=== PATIENT | female | born 1965 | race Caucasian/White ===

== ENCOUNTER → 2019-07-08 07:32 | Outpatient (CLI) | payer BC, SELFPAY ==
[2019-07-08 10:28] LABS: Anion Gap 7 (5-15); BUN 17 mg/dL (7-18); BUN/Creat Ratio 24.3 RATIO (10-20); Calcium,Total 8.7 mg/dL (8.5-10.1); Chloride 108 mmol/L (98-107); Cholesterol 211 mg/dL (200); EST Glomerular Filtration Rate 93 mL/min (>60); Est Glom Filt Rate - Afr Amer 113 mL/min (>60); Glucose 95 mg/dL (74-106); High Density Lipoprotein 51 mg/dL; Potassium 3.9 mmol/L (3.5-5.1); Sodium Level 139 mmol/L (136-145); Thyroid Stim Hormone (TSH) 1.65 uIU/mL (0.358-3.74); Triglycerides 134 mg/dL; Very Low Density Lipoprotein 27 mg/dL (5-40)
== END ==
PROVIDERS: Family Provider Family Medicine; PCP Family Medicine; Referring Provider Family Medicine; Visit Provider Family Medicine
DX: F32.9 Major depressive disorder, single episode, unspecified (principal); Z13.1 Encounter for screening for diabetes mellitus; Z13.220 Encounter for screening for lipoid disorders
CPT/HCPCS: 36415; 80048; 80061; 84443

== ENCOUNTER → 2023-05-07 | Outpatient (CLI) | payer BC, SELFPAY ==
[2023-05-07 15:33] LABS: Absolute Lymphocyte Count 1.57 X10^3/uL (0.83-4.51); Absolute Neutrophil Count 3.7 X10^3/uL (2.0-7.7); Basophil# 0.06 X10^3/uL; Eosinophil# 0.07 X10^3/uL; Eosinophils% 1.2 % (0-5); Hematocrit 43.8 % (37-47); Hemoglobin 14.4 g/dL (12.0-15.0); Lymphocyte # 1.57 X10^3/ul (0.83-4.51); Mean Corp Hgb Conc 32.9 g/dL (32-36); Mean Corpuscular Hgb 29.4 pg (27.0-32.0); Mean Corpuscular Volume 89.6 fL (81-99); Mean Platelet Vol. 10.4 fl (6.2-12.0); Monocyte# 0.38 X10^3/uL; Monocyte% 6.5 % (0-10); NRBC Flagged by Analyzer 0 % (0-5); Neutrophil # 3.73 X10^3/uL (2.7-7.7); Neutrophil % 64.1 % (47-70); Platelet Count 329 K/mm3 (150-450); RBC Distribution Width CV 12.8 % (11.6-14.6); RBC Distribution Width SD 41.8 fl (35.1-43.9); Red Blood Count 4.89 M/mm3 (4.2-5.4); White Blood Count 5.8 K/mm3 (4.4-11.0)
[2023-05-07 16:03] LABS: Vitamin B12 359 pg/mL (211-911); Vitamin D,25 Hydroxy 31.4 ng/mL
[2023-05-07 16:07] LABS: Hemoglobin A1c 5.7 % (3.8-5.6)
[2023-05-07 16:13] LABS: AST(SGOT) 15 U/L (15-37); Alanine Aminotransfer ALT/SGPT 34 U/L (13-56); Alkaline Phosphatase 117 U/L (45-117); Anion Gap 7 (5-15); BUN 20 mg/dL (7-18); BUN/Creat Ratio 26.7 RATIO (10-20); Chloride 106 mmol/L (98-107); Creatinine, Serum 0.75 mg/dL (0.55-1.02); EST Glomerular Filtration Rate 85 mL/min (>60); Est Glom Filt Rate - Afr Amer 103 mL/min (>60); Ferritin 50 ng/mL (8-252); Globulin 3.9 g/dL (2.2-4.2); Glucose 94 mg/dL (74-106); Potassium 3.9 mmol/L (3.5-5.1); Protein, Total 7.9 g/dL (6.4-8.2); Sodium Level 138 mmol/L (136-145); Thyroid Stim Hormone (TSH) 1.56 uIU/mL (0.358-3.74)
== END | disposition home or self-care (01) ==
PROVIDERS: PCP Family Medicine; Referring Provider Family Medicine; Visit Provider Family Medicine
DX: Z00.00 Encounter for general adult medical examination without abnormal findings (principal)
CPT/HCPCS: 36415; 80053; 82306; 82607; 82728; 83036; 84443; 85025

== ENCOUNTER 2023-08-08 09:30 | Outpatient (RCR) | payer BC, SELFPAY ==
--- NOTE | 2023-06-25 09:54 | HP.PTEVAL ---
Patient's Visit Information Visit Information Visit Information: WESLEY JOHNSON is a 57 year old F referred to Physical Therapy by NEHA ESPINOZA with a diagnosis of R Achilles tendonitis/Equinus contracture of R ankle. Date of Evaluation: 06/25/23 Physical Therapist: Dejah Coffey MPT Visit Plan Frequency: 2x /Week Duration: 6 Weeks Plan: 2X/ week for 6 weeks for R ankle AROM, PROM, foam/stick rolling, stretching of the Achilles, joint mobs to increase DF, strengthening of R ankle, gait training, STmobilization, US with HEP HEP: towel gastroc stretch, seated heel and toe raises Subjective Subjective: Pt was dx with R Achilles tendonitis due to burning sensation and difficulty walking. Dr suggested that she does PT couple times a week for 6 weeks. She does not know how she hurt it and it gradually came on. She has days that it is pretty good but her bad days are bad. She can not know what increases the inflammation. She has no back pain. She does not wear high heeled shoes. Stairs: she is able to go up and down the stairs recip with a railing. She has a fear of falling. Her pain is worse as the day goes on. She is not on her feet all day and does not wear high heels. She likes to walk 1.5 hours a day and has not done that since October and her Dr said not to do more than 10-[address] said that her R calf muscle was really tight also. Pain R achilles pain: Pain Intensity (Out of 10): 0 Objective Objective: Gait: walks with slight decrease stance time on the R LE. AROM: R ankle DF -5, PF 45, INV 24, EV 15 L ankle DF 4, PF 32. INV 34, EV 11 MMT: R DF 7.7 and PF 13.9, INV 3.7 and EV 5.7 L DF 10.2, PF 13.1, INV 10.5, EV 7.3 Palpation: Tender along the R achilles tendon insertion Pt is able to standing heel and toe raises 2 X 5 Pt had a little stinging with seated heel and toe raises Balance/Special Test Scores Lower Extremity Functional Score: 46 Goals Goal 1:: I HEP Goal Time Frame: 6-8 Weeks Goal 2:: Increase R ankle AROM (at the time of the eval: R ankle DF -5, PF 45, INV 24, EV 15 L ankle DF 4, PF 32. INV 34, EV 11). Goal Time Frame: 6-8 Weeks Goal 3:: Increase R ankle strength: (R DF 7.7 and PF 13.9, INV 3.7 and EV 5.7 L DF 10.2, PF 13.1, INV 10.5, EV 7.3). Goal Time Frame: 6-8 Weeks Goal 4:: Walk with normal gait pattern with no antalgic. Goal Time Frame: 6-8 Weeks Rehabilitation Potential Rehabilitation Potential: Good Anticipated Interventions Patient/Client Instruction: Educate patient on: Condition and Plan of Care For the Purpose of:: To decrease pain, To decrease swelling/inflammation, To increase ROM, To improve nutrient delivery to tissue, To improve muscle performance and motor function, To improve ability to perform ADL's, To increase tolerance to activity/condition/position, To improve performance and independence with ADL's, To decrease level of supervision to perform tasks, To improve ability of physical actions for home/community/work/leisure, To improve gait and locomotor functions, To improve health of tissue, To decrease soft tissue restriction, To increase flexibility/ROM and To improve safety with gait Therapeutic Exercise to Include: Strength training, Postural training, Flexibilty training, Gait and locomotor training, Passive ROM and Active ROM For the Purpose of:: To decrease pain, To decrease swelling/inflammation, To increase ROM, To improve nutrient delivery to tissue, To increase oxygenation perfusion, To improve muscle performance and motor function, To improve ability to perform ADL's, To increase tolerance to activity/condition/position, To improve performance and independence with ADL's, To decrease level of supervision to perform tasks, To improve ability of physical actions for home/community/work/leisure, To improve gait and locomotor functions, To improve health of tissue, To decrease soft tissue restriction, To increase flexibility/ROM and To improve safety with gait Functional Training to Include: Gait training For the Purpose of:: To improve gait and locomotor functions and To improve safety with gait Manual Therapy Techniques to Include: Mobilization, Passive ROM and Soft tissue mobilization For the Purpose of:: To decrease pain, To decrease swelling/inflammation, To increase ROM, To improve nutrient delivery to tissue, To improve muscle performance and motor function, To improve ability to perform ADL's, To improve health of tissue, To decrease soft tissue restriction and To increase flexibility/ROM Ultrasound (thermal/non thermal): Yes For the Purpose of:: To decrease pain, To decrease swelling/inflammation, To increase ROM and To improve nutrient delivery to tissue Text: Thank you for the opportunity to evaluate your patient. For Medicare and Medicare HMO plans, please review the plan of care and approve it. It will need to be FAXED BACK to us at [phone] for Medicare purposes. For Medicare only, by signing this I certify the plan of care. Please let me know if there are questions or concerns regarding this plan of care. Physician Signature: Date:
--- NOTE | 2023-07-30 11:32 | HP.PTREVAL_ITS ---
Re-Evaluation Intro: NEHA ESPINOZA, It has been my pleasure to treat WESLEY JOHNSON over the last 9 visits for R Achilles tendonitis/Equinus contracture of R ankle. Please see the progress note below for an update on the physical therapy plan of care! Subjective Subjective: Pt reports that when she has the pain it is now less than 5/10 compared to where it was like 10/10. Pt feels the US and MT is really helping. She reports that she has not been walking much because she does not want to aggrevate it more. It is not hurting as much when getting out of bed (couple of good days). She has been icing 3-4 times per day. Objective Objective/Function: Pt felt good after treatment Plan Plan Plan: 2X/ week for 6 weeks for R ankle AROM, PROM, foam/stick rolling, stretching of the Achilles, joint mobs to increase DF, strengthening of R ankle, gait training, ST mobilization, US with HEP HEP: towel gastroc stretch, seated heel and toe raises Balance/Gait/Functional tests Balance/Special Test Scores Lower Extremity Functional Score: 69 Goals Goals Goal 1:: I HEP Goal Time Frame: 6-8 Weeks Goal Progress: Goal Met Goal 2:: Increase R ankle AROM (at the time of the eval: R ankle DF -5, PF 45, INV 24, EV 15 L ankle DF 4, PF 32. INV 34, EV 11). Goal Time Frame: 6-8 Weeks Goal 3:: Increase R ankle strength: (R DF 7.7 and PF 13.9, INV 3.7 and EV 5.7 L DF 10.2, PF 13.1, INV 10.5, EV 7.3). Goal Time Frame: 6-8 Weeks Goal 4:: Walk with normal gait pattern with no antalgic. Goal Time Frame: 6-8 Weeks Goal Progress: Progressing Anticipated Interventions Anticipated Interventions Patient/Client Instruction: Educate patient on: Condition and Plan of Care For the Purpose of:: To decrease pain, To decrease swelling/inflammation, To increase ROM, To improve nutrient delivery to tissue, To improve muscle performance and motor function, To improve ability to perform ADL's, To increase tolerance to activity/condition/position, To improve performance and independence with ADL's, To decrease level of supervision to perform tasks, To improve ability of physical actions for home/community/work/leisure, To improve gait and locomotor functions, To improve health of tissue, To decrease soft tissue restriction, To increase flexibility/ROM and To improve safety with gait Therapeutic Exercise to Include: Strength training, Postural training, Flexibilty training, Gait and locomotor training, Passive ROM and Active ROM For the Purpose of:: To decrease pain, To decrease swelling/inflammation, To increase ROM, To improve nutrient delivery to tissue, To increase oxygenation perfusion, To improve muscle performance and motor function, To improve ability to perform ADL's, To increase tolerance to activity/condition/position, To improve performance and independence with ADL's, To decrease level of supervision to perform tasks, To improve ability of physical actions for home/community/work/leisure, To improve gait and locomotor functions, To improve health of tissue, To decrease soft tissue restriction, To increase flexibi lity/ROM and To improve safety with gait Functional Training to Include: Gait training For the Purpose of:: To improve gait and locomotor functions and To improve safety with gait Manual Therapy Techniques to Include: Mobilization, Passive ROM and Soft tissue mobilization For the Purpose of:: To decrease pain, To decrease swelling/inflammation, To increase ROM, To improve nutrient delivery to tissue, To improve muscle performance and motor function, To improve ability to perform ADL's, To improve health of tissue, To decrease soft tissue restriction and To increase flexibility/ROM Ultrasound (thermal/non thermal): Yes For the Purpose of:: To decrease pain, To decrease swelling/inflammation, To increase ROM and To improve nutrient delivery to tissue Re-Evaluation Ending Re-evaluation ending: Please do not hesitate to contact me at [phone] by phone or if you have questions or concerns regarding this new plan of care! Sincerely, Dejah Coffey MPT
--- NOTE | 2023-08-08 10:21 | HP.PTDCSUM ---
Discharge Summary D/C summary: It has been my pleasure to treat WESLEY JOHNSON referred by NEHA ESPINOZA, with the diagnosis of R Achilles tendonitis/Equinus contracture of R ankle for a total of 12 visit(s). Discharge Date: 08/08/23 Please see the following information for a summary of their discharge status. Subjective Subjective: Pt reports 7/10 pain. PT, ice all give temp relief. She gets burning in her heel as well. Pain R achilles pain: Pain Intensity (Out of 10): 7 Overall Improvement % Improvement: 50 Objective Objective/Function: Pt felt good after treatment today Goals Goal 1:: I HEP Goal Progress: Goal Met Goal 2:: Increase R ankle AROM (at the time of the eval: R ankle DF -5, PF 45, INV 24, EV 15 L ankle DF 4, PF 32. INV 34, EV 11). Goal Progress: Not Progressing Goal 3:: Increase R ankle strength: (R DF 7.7 and PF 13.9, INV 3.7 and EV 5.7 L DF 10.2, PF 13.1, INV 10.5, EV 7.3). Goal Progress: Not Progressing Goal 4:: Walk with normal gait pattern with no antalgic. Goal Progress: Progressing Plan Plan: DC PT back to physician for reassessment D/C Information Discharge Comments: DC PT to HEP d/c sentence: If there are questions or concerns regarding this patient's physical therapy, please feel free to call me at [phone]. Thank you for the referral of this patient. Sincerely, Dejah Coffey, MPT Balance/Gait/Functional tests Balance/Special Test Scores Lower Extremity Functional Score: 69 Improvement % Improvement: 50
== END 2023-08-08 19:00 | disposition home or self-care (01) ==
LOC: PT 09:30
PROVIDERS: PCP Family Medicine
DX: M24.571 Contracture, right ankle (principal); M76.61 Achilles tendinitis, right leg
CPT/HCPCS: 97035; 97140; 97161; 97530

== ENCOUNTER → 2023-08-15 | Outpatient (CLI) | payer BC, SELFPAY ==
[2023-08-15 17:51] LABS: Vitamin B12 884 pg/mL (211-911)
== END | disposition home or self-care (01) ==
LOC: MFPLAB 15:08
PROVIDERS: PCP Family Medicine; Visit Provider Family Medicine
DX: E53.8 Deficiency of other specified B group vitamins (principal)
CPT/HCPCS: 36415; 82607

== ENCOUNTER → 2024-05-11 | Outpatient (CLI) | payer BC, SELFPAY ==
[2024-05-11 12:22] LABS: Absolute Lymphocyte Count 1.45 X10^3/uL (0.83-4.51); Absolute Neutrophil Count 4.7 X10^3/uL (2.0-7.7); Basophil# 0.04 X10^3/uL; Basophil% 0.6 % (0-1); Eosinophil# 0.17 X10^3/uL; Eosinophils% 2.5 % (0-5); Hematocrit 41.1 % (37-47); Hemoglobin 13.2 g/dL (12.0-15.0); Lymphocyte # 1.45 X10^3/ul (0.83-4.51); Mean Corp Hgb Conc 32.1 g/dL (32-36); Mean Corpuscular Hgb 28.8 pg (27.0-32.0); Mean Corpuscular Volume 89.7 fL (81-99); Mean Platelet Vol. 10.4 fl (6.2-12.0); Monocyte# 0.49 X10^3/uL; Monocyte% 7.1 % (0-10); NRBC Flagged by Analyzer 0 % (0-5); Neutrophil # 4.74 X10^3/uL (2.7-7.7); Neutrophil % 68.5 % (47-70); Platelet Count 369 K/mm3 (150-450); RBC Distribution Width CV 13.2 % (11.6-14.6); RBC Distribution Width SD 41.9 fl (35.1-43.9); Red Blood Count 4.58 M/mm3 (4.2-5.4); White Blood Count 6.9 K/mm3 (4.4-11.0)
[2024-05-11 12:29] LABS: Vitamin B12 1096 pg/mL (211-911); Vitamin D,25 Hydroxy 33.3 ng/mL
[2024-05-11 12:40] LABS: Hemoglobin A1c 5.7 % (3.8-5.6)
[2024-05-11 12:49] LABS: ALB/GLOB Ratio 1.1 RATIO (0.9-2.4); AST(SGOT) 16 U/L (15-37); Alanine Aminotransfer ALT/SGPT 26 U/L (13-56); Albumin, Serum 3.8 g/dL (3.2-5.0); Alkaline Phosphatase 125 U/L (45-117); Anion Gap 6 (5-15); BUN 15 mg/dL (7-18); BUN/Creat Ratio 22.5 RATIO (10-20); Calcium,Total 9.1 mg/dL (8.5-10.1); Chloride 105 mmol/L (98-107); Creatinine, Serum 0.67 mg/dL (0.55-1.02); EST Glomerular Filtration Rate 97 mL/min (>60); Est Glom Filt Rate - Afr Amer 117 mL/min (>60); Ferritin 69 ng/mL (8-252); Globulin 3.4 g/dL (2.2-4.2); Glucose 101 mg/dL (74-106); Potassium 4.1 mmol/L (3.5-5.1); Protein, Total 7.2 g/dL (6.4-8.2); Sodium Level 135 mmol/L (136-145)
== END | disposition home or self-care (01) ==
LOC: MFPLAB 09:32
PROVIDERS: PCP Family Medicine; Visit Provider Family Medicine
DX: Z00.00 Encounter for general adult medical examination without abnormal findings (principal)
CPT/HCPCS: 36415; 80053; 82306; 82607; 82728; 83036; 84443; 85025

== ENCOUNTER → 2024-06-16 | Outpatient (CLI) | payer BC, SELFPAY ==
[2024-06-22 17:07] LABS: Alternaria alternata <0.10 kU/L (Class 0); Aspergillus fumigatus <0.10 kU/L (Class 0); Bahia Grass 1.07 kU/L (Class II); Bermuda Grass 1.08 kU/L (Class II); Bluegrass, Kentucky 1.09 kU/L (Class II); Cat Hair/Dander, Standard <0.10 kU/L (Class 0); Cedar, Mountain 0.44 kU/L (Class I); Cladosporium herbarum <0.10 kU/L (Class 0); Cockroach, American 0.12 kU/L (Class 0/I); D farinae Mite <0.10 kU/L (Class 0); D pteronyssinus <0.10 kU/L (Class 0); Dog Epithelia <0.10 kU/L (Class 0); Elm, American White 0.79 kU/L (Class II); Hazelnut Tree 0.43 kU/L (Class I); Hickory, White 0.63 kU/L (Class II); Maple/Box Elder 0.77 kU/L (Class II); Mucor racemosus <0.10 kU/L (Class 0); Mugwort 0.56 kU/L (Class II); Mulberry, White 0.48 kU/L (Class I); Nettle 0.78 kU/L (Class II); Oak, White 0.95 kU/L (Class II); Penicillium chrysogen <0.10 kU/L (Class 0); Plantain, English 0.65 kU/L (Class II); Ragweed, Short/Common 0.79 kU/L (Class II); Sheep Sorrel(Dock) 0.93 kU/L (Class II); Stemphylium herbarum <0.10 kU/L (Class 0); Sweet Gum 0.86 kU/L (Class II); Sycamore, American 0.77 kU/L (Class II)
== END | disposition home or self-care (01) ==
LOC: MTLAB 11:40
PROVIDERS: PCP Family Medicine; Referring Provider Family Medicine; Visit Provider Family Medicine
DX: R09.81 Nasal congestion (principal)
CPT/HCPCS: 36415; 86003

== ENCOUNTER → 2024-08-05 | Outpatient (CLI) | payer BC, SELFPAY ==
[2024-08-09 09:07] LABS: Beef <0.10 kU/L (Class 0); Chocolate <0.10 kU/L (Class 0); Codfish <0.10 kU/L (Class 0); Corn 0.24 kU/L (Class 0/I); Egg, Whole <0.10 kU/L (Class 0); Milk (Cow) <0.10 kU/L (Class 0); Mussels <0.10 kU/L (Class 0); Peanut 0.56 kU/L (Class II); Pork <0.10 kU/L (Class 0); Salmon <0.10 kU/L (Class 0); Shrimp <0.10 kU/L (Class 0); Soybean 0.22 kU/L (Class 0/I); Tuna <0.10 kU/L (Class 0); Wheat 0.39 kU/L (Class I)
== END | disposition home or self-care (01) ==
LOC: MFPLAB 14:48
PROVIDERS: PCP Family Medicine; Referring Provider Family Medicine; Visit Provider Family Medicine
DX: R09.81 Nasal congestion (principal)
CPT/HCPCS: 86003; 86005